=== PATIENT | female | born 2000 | race Caucasian/White ===

== ENCOUNTER 2018-01-29 20:14 | Emergency (ER) | payer BC ==
[2018-01-29 20:33] VITALS: BP 141/74
[2018-01-29] MEDS ORDERED: predniSONE TAB* 20 MG PO ONE (20:46)
--- NOTE | 2018-01-29 20:47 | UC ---
Throat Pain/Nasal Quang HPI - HPI Summary HPI Summary: C/O ST x 2 days with some sensation of the throat closing up. Cough with some tightness in the breathing. - History of Current Complaint Chief Complaint: UCGeneralIllness Stated Complaint: SORE THROAT Time Seen by Provider: 01/29/18 20:35 Hx Obtained From: Patient Hx Last Menstrual Period: 01/21/18 ?: No Onset/Duration: Lasting Days - 2, Worse Since - today Severity: Moderate Pain Intensity: 6 Cough: Nonproductive Associated Signs & Symptoms: Positive: Dysphagia, Hoarseness - Allergies/Home Medications Allergies/Adverse Reactions: Allergies Allergy/AdvReac Type Severity Reaction Status Date / Time No Known Allergies Allergy Verified 01/29/18 20:34 Home Medications: Home Medications Oral Contraceptives DAILY 01/29/18 [History] PMH/Surg Hx/FS Hx/Imm Hx - Surgical History Surgical History: None - Family History Known Family History: Negative: Diabetes - Social History Occupation: Student Lives: Dormitory/Roommates Alcohol Use: Rare Substance Use Type: None Smoking Status (MU): Never Smoked Tobacco Review of Systems ENT: Sore Throat Respiratory: Cough Is Patient Immunocompromised?: No All Other Systems Reviewed And Are Negative: Yes Physical Exam Triage Information Reviewed: Yes Appearance: No Pain Distress, Well-Nourished, Ill-Appearing - mild Vital Signs: Initial Vital Signs Temp 98.6 F 01/29/18 20:30 Pulse 88 01/29/18 20:30 Resp 18 01/29/18 20:30 BP 141/74 01/29/18 20:30 Pulse Ox 100 01/29/18 20:30 Vital Signs Reviewed: Yes ENT: Positive: Pharyngeal erythema - in the posterior pharynx, TMs normal Neck exam: Normal Neck: Positive: No Lymphadenopathy Respiratory: Positive: Lungs clear, Wheezing - expiratory with coughing Cardiovascular Exam: Normal Musculoskeletal Exam: Normal Neurological Exam: Normal Psychological Exam: Normal Skin Exam: Normal Throat Pain/Nasal Course/Dx - Differential Dx/Diagnosis Differential Diagnosis/HQI/PQRI: Pharyngitis, Sinusitis, URI Provider Diagnoses: Acute URI. Acute bronchospasm Discharge - Sign-Out/Discharge Documenting (check all that apply): Discharge/Admit/Transfer - Discharge Plan Condition: Stable Disposition: HOME Prescriptions: predniSONE TAB* [Deltasone TAB*] 20 mg PO DAILY #18 tab Patient Education Materials: Upper Respiratory Infection (ED), Bronchospasm (ED ), Prednisone (By mouth) Referrals: Non Staff,Doctor [Primary Care Provider] - - Billing Disposition and Condition Condition: STABLE Disposition: HOME
== END 2018-01-29 21:04 | disposition home or self-care (01) ==
LOC: UCCORT 20:14
DX: J06.9 Acute upper respiratory infection, unspecified (principal); J98.01 Acute bronchospasm
CPT/HCPCS: 87651; 99202; G0463; J7512

== ENCOUNTER 2018-06-19 13:58 | Emergency (ER) | payer BC ==
[2018-06-19 16:38] VITALS: BP 117/66
--- NOTE | 2018-06-19 16:59 | UC ---
UC General HPI - HPI Summary HPI Summary: Patient is complaining of one day history of burning, frequency and hesitancy with urination. She reports prior history of UTIs and states this feels the same. She denies any abdominal pain, fever as well as risk or concern for pelvic infection. - History of Current Complaint Chief Complaint: UCGU Stated Complaint: URINARY COMPLAINT Time Seen by Provider: 06/19/18 16:54 Hx Obtained From: Patient Hx Last Menstrual Period: 06/12/18 Onset/Duration: Gradual Onset Timing: Constant Pain Intensity: 6 Aggravating: nothing Alleviating: nothing Associated Signs & Symptoms: Positive: Dysuria. Negative: Abdominal Pain, Fever - Allergy/Home Medications Allergies/Adverse Reactions: Allergies Allergy/AdvReac Type Severity Reaction Status Date / Time No Known Allergies Allergy Verified 06/19/18 16:32 PMH/Surg Hx/FS Hx/Imm Hx - Additional Past Medical History Additional PMH: uti - Surgical History Surgical History: None - Family History Known Family History: Positive: None Negative: Diabetes - Social History Occupation: Student Lives: Dormitory/Roommates Alcohol Use: None Substance Use Type: None Smoking Status (MU): Never Smoked Tobacco - Immunization History Vaccination Up to Date: Yes Review of Systems Constitutional: Negative Skin: Negative Eyes: Negative ENT: Negative Respiratory: Negative Cardiovascular: Negative Gastrointestinal: Negative Genitourinary: Dysuria, Frequency Motor: Negative Neurovascular: Negative Musculoskeletal: Negative Neurological: Negative Psychological: Negative Is Patient Immunocompromised?: No All Other Systems Reviewed And Are Negative: Yes Physical Exam Triage Information Reviewed: Yes Appearance: Well-Appearing Vital Signs: Initial Vital Signs Temp 98 F 06/19/18 16:32 Pulse 80 06/19/18 16:32 Resp 18 06/19/18 16:32 BP 117/66 06/19/18 16:32 Pulse Ox 100 06/19/18 16:32 Vital Signs Reviewed: Yes Eyes: Positive: Conjunctiva Clear ENT: Positive: Normal ENT inspection Neck: Positive: Supple, Nontender, No Lymphadenopathy Respiratory: Positive: Lungs clear, Normal breath sounds Cardiovascular: Positive: RRR, No Murmur Abdomen Description: Positive: Nontender, No Organomegaly, Soft. Negative: CVA Tenderness (R), CVA Tenderness (L), Distended, Guarding Bowel Sounds: Positive: Present Musculoskeletal: Positive: ROM Intact Neurological: Positive: Alert Psychological: Positive: Age Appropriate Behavior Skin Exam: Normal Diagnostics - Laboratory Diagnostic Studies Completed/Ordered: u/a=2+ leuks. culture pending Course/Dx - Differential Dx - Multi-Symptom Differential Diagnoses: Urinary Tract Infection Provider Diagnoses: dysuria Discharge - Sign-Out/Discharge Documenting (check all that apply): Patient Departure All imaging exams completed and their final reports reviewed: No Studies - Discharge Plan Condition: Stable Disposition: HOME Prescriptions: Nitrofurantoin Macrocrystals* [Macrodantin 100 mg*] 100 mg PO BID 5 Days #10 cap Patient Education Materials: Dysuria (ED) Referrals: [facility] [Outside] - 7 Days - Billing Disposition and Condition Condition: STABLE Disposition: Home
== END 2018-06-19 17:11 | disposition home or self-care (01) ==
LOC: UCCORT 13:58
DX: R30.0 Dysuria (principal)
CPT/HCPCS: 81003; 87077; 87086; 87186; 99212; G0463

== ENCOUNTER → 2018-12-28 12:08 | Emergency (ER) | payer BC ==
[2018-12-28 12:48] VITALS: BP 114/69
--- NOTE | 2018-12-28 13:07 | UC ---
Throat Pain/Nasal Quang HPI - HPI Summary HPI Summary: 18-year-old woman comes in with a chief complaint of several days of upper respiratory Tract infection symptoms. No fevers or chills. She does have rhinorrhea. Today she feels like the congestion is gone into her chest and she short of breath with activity. No wheezing no history of asthma. Patient's had pneumonia in the past and she says she is worried about getting pneumonia and this is what it felt like when she started getting pneumonia last time. She 's had some [id number] medications which do help with the symptoms. - History of Current Complaint Chief Complaint: UCRespiratory Stated Complaint: ST,SINUS COMPLAINT Time Seen by Provider: 12/28/18 12:57 Hx Last Menstrual Period: 12/07/18 Pain Intensity: 0 - Allergies/Home Medications Allergies/Adverse Reactions: Allergies Allergy/AdvReac Type Severity Reaction Status Date / Time No Known Allergies Allergy Verified 12/28/18 12:45 Home Medications: Home Medications Bcp 1 cap DAILY 12/28/18 [History Confirmed 12/28/18] PMH/Surg Hx/FS Hx/Imm Hx Previously Healthy: Yes - Surgical History Surgical History: None - Family History Known Family History: Positive: None Negative: Diabetes - Social History Alcohol Use: None Substance Use Type: None Smoking Status (MU): Never Smoked Tobacco - Immunization History Vaccination Up to Date: Yes Review of Systems All Other Systems Reviewed And Are Negative: Yes Constitutional: Positive: Negative Skin: Positive: Negative Eyes: Positive: Negative ENT: Positive: Nasal Discharge, Sinus Congestion Respiratory: Positive: Cough, Other - SEE HPI Cardiovascular: Positive: Negative Gastrointestinal: Positive: Negative Motor: Positive: Negative Neurovascular: Positive: Negative Musculoskeletal: Positive: Negative Neurological: Positive: Negative Psychological: Positive: Negative Is Patient Immunocompromised?: No Physical Exam Triage Information Reviewed: Yes Appearance: No Pain Distress, Well-Nourished, Ill-Appearing - MILD Vital Signs: Initial Vital Signs Temp 97.9 F 12/28/18 12:45 Pulse 77 12/28/18 12:45 Resp 16 12/28/18 12:45 BP 114/69 12/28/18 12:45 Pulse Ox 100 12/28/18 12:45 Vital Signs Reviewed: Yes Eye Exam: Normal Eyes: Positive: Conjunctiva Clear ENT: Positive: Pharyngeal erythema, Nasal congestion, Nasal drainage, TMs normal Neck exam: Normal Neck: Positive: Supple Respiratory: Positive: Lungs clear, Normal breath sounds, No respiratory distress Cardiovascular: Positive: RRR Musculoskeletal Exam: Normal Musculoskeletal: Positive: Strength Intact, ROM Intact Neurological Exam: Normal Neurological: Positive: Alert, Muscle Tone Normal Psychological Exam: Normal Psychological: Positive: Age Appropriate Behavior Skin Exam: Normal Throat Pain/Nasal Course/Dx - Course Course Of Treatment: DISCUSSED VIRAL VERSES BACTERIAL INFECTION AND THE ROLE OF ANTIBIOTICS. THE PATIENT WISHES TO HAVE A PRESCRIPTION FOR ANTIBIOTICS AT THIS TIME. - Differential Dx/Diagnosis Provider Diagnosis: Bronchitis Discharge - Sign-Out/Discharge Documenting (check all that apply): Patient Departure All imaging exams completed and their final reports reviewed: No Studies - Discharge Plan Condition: Stable Disposition: HOME Prescriptions: Azithromyxin GRAY (NF) [Z-Gray (Zithromax) 250 mg tabs #6] 2 tab PO .TODAY, THEN 1 DAILY #6 tab Patient Education Materials: Acute Bronchitis (ED) Referrals: [facility] [Outside] Additional Instructions: FOLLOW UP WITH YOUR DOCTOR IF NOT COMPLETELY IMPROVED. GET REEVALUATED SOONER FOR ANY WORSENING OF YOUR CONDITION OR ANY QUESTIONS OR CONCERNS. - Billing Disposition and Condition Condition: STABLE Disposition: Home
== END | disposition home or self-care (01) ==
LOC: UCCORT 12:08
DX: J40 Bronchitis, not specified as acute or chronic (principal)
CPT/HCPCS: 99212; G0463

== ENCOUNTER 2019-07-24 11:28 | Emergency (ER) | payer BC ==
[2019-07-24 11:53] VITALS: BP 119/70
--- NOTE | 2019-07-24 12:09 | UC ---
Throat Pain/Nasal Quang HPI - HPI Summary HPI Summary: Patient is a 19-year-old female presenting with sore throat 1 week and cough 2 days. Patient states cough is bothering her the most and that she cannot sleep at night. Denies shortness of breath and wheezing. Denies ear pain, nasal congestion, headaches. Denies fever and chills. Denies nausea and vomiting. Denies abdominal pain. She had bronchitis a few years back that turned into pneumonia. - History of Current Complaint Chief Complaint: UCGeneralIllness Stated Complaint: ST,COUGH,CHEST CONGESTION Hx Last Menstrual Period: 07/15/19 Onset/Duration: Gradual Onset, Lasting Days Severity: Moderate Pain Intensity: 5 Pain Scale Used: 0-10 Numeric - Allergies/Home Medications Allergies/Adverse Reactions: Allergies Allergy/AdvReac Type Severity Reaction Status Date / Time No Known Allergies Allergy Verified 07/24/19 11:47 PMH/Surg Hx/FS Hx/Imm Hx Previously Healthy: Yes - Surgical History Surgical History: None - Family History Known Family History: Positive: None Negative: Diabetes - Social History Alcohol Use: Occasionally Substance Use Type: None Smoking Status (MU): Never Smoked Tobacco - Immunization History Vaccination Up to Date: Yes Review of Systems All Other Systems Reviewed And Are Negative: Yes Constitutional: Positive: Negative ENT: Positive: Sore Throat. Negative: Ear Ache, Nasal Discharge, Sinus Congestion, Sinus Pain/Tenderness Respiratory: Positive: Cough. Negative: Shortness Of Breath Cardiovascular: Positive: Negative Gastrointestinal: Positive: Negative Musculoskeletal: Positive: Negative Neurological: Positive: Negative Physical Exam Triage Information Reviewed: Yes Appearance: Well-Appearing, No Pain Distress, Well-Nourished Vital Signs: Initial Vital Signs Temp 99 F 07/24/19 11:48 Pulse 80 07/24/19 11:48 Resp 16 07/24/19 11:48 BP 119/70 07/24/19 11:48 Pulse Ox 100 07/24/19 11:48 Lab Results 07/24/19 Range/Units 11:57 Group A Strep Rapid Negative (Negative) Vital Signs Reviewed: Yes Eyes: Positive: Conjunctiva Clear ENT: Positive: Hearing grossly normal, Pharyngeal erythema, TMs normal, Tonsillar swelling, Uvula midline. Negative: Nasal congestion, Nasal drainage, TM bulging, TM dull, TM red, Tonsillar exudate, Trismus, Muffled voice, Sinus tenderness Neck exam: Normal Neck: Positive: Supple, Nontender, No Lymphadenopathy Respiratory Exam: Normal Respiratory: Positive: Lungs clear, Normal breath sounds, No respiratory distress Cardiovascular Exam: Normal Cardiovascular: Positive: RRR Neurological: Positive: Alert Psychological: Positive: Age Appropriate Behavior Throat Pain/Nasal Course/Dx - Course Course Of Treatment: Discussed negative rapid strep with patient and that symptoms are likely viral. Instructed her to continue symptomatic treatment including taking Tessalon Perles as prescribed for cough. Instructed to follow up with PCP or with the referrals listed for further evaluation if symptoms persist. Patient voiced understanding and agreed with the treatment plan. - Differential Dx/Diagnosis Provider Diagnosis: Pharyngitis, Acute bronchitis Discharge ED - Sign-Out/Discharge Documenting (check all that apply): Patient Departure All imaging exams completed and their final reports reviewed: No Studies - Discharge Plan Condition: Stable Disposition: HOME Prescriptions: Benzonatate CAP* [Tessalon 100 MG CAP*] 100 mg PO TID PRN #21 cap PRN Reason: Cough Patient Education Materials: Acute Bronchitis (ED) Referrals: [facility] [Outside] - If Needed [facility] [place] [facility] [Outside] - If Needed Additional Instructions: As discussed, you tested negative for strep throat today and your symptoms are likely caused by a virus. You may take the Tessalon Perles as prescribed for relief of your cough. You may take ibuprofen and/or tylenol as directed for fever and pain relief. You may use over the counter throat sprays or lozenges for symptomatic relief. Get plenty of rest and fluids. Follow-up with your PCP or one of the referrals listed below if symptoms worsen or do not resolve in 10 days. - Billing Disposition and Condition Condition: STABLE Disposition: Home - Attestation Statements Provider Attestation: I was available for consult. This patient was seen by the ELEONORA. The patient was not presented to, seen by, or examined by me. -Colleen
== END 2019-07-24 12:33 | disposition home or self-care (01) ==
LOC: UCCORT 11:28
DX: J02.9 Acute pharyngitis, unspecified (principal); J20.9 Acute bronchitis, unspecified; Z87.01 Personal history of pneumonia (recurrent)
CPT/HCPCS: 87651; 99212; G0463